=== PATIENT | male | born 1980 | race African-American/Black ===

== ENCOUNTER 2019-05-30 17:41 | Inpatient (IN) | payer OTHER ==
[~2019-05-30] VITALS: Ht 165.1 cm; Wt 68.0 kg
[2019-05-30] MEDS ORDERED: SODIUM CHLORIDE 0.9% 500 ML IV ONE (17:45)
[2019-05-30] MEDS ORDERED: ALBUTEROL (0.083%) 2.5MG/3ML NEB HHN ONE (17:45)
[2019-05-30] MEDS ORDERED: IPRATROPIUM BROMIDE (0.02%) 0.5MG/2.5ML NEB HHN ONE (17:45)
[2019-05-30] MEDS ORDERED: MAGNESIUM 2 G PREMIX 50 ML IV ONE ×2 (17:45→17:58)
[2019-05-30] MEDS ORDERED: METHYLPREDNISOLONE SOD SUCC 125 MG/2 ML VIAL IV ONE (17:45)
[2019-05-30] MEDS ORDERED: METHYLPREDNISOLONE SOD SUCC 125 MG/2 ML VIAL ONE (17:57)
[2019-05-30 19:15] LABS: HEMATOCRIT. 37.9 % (42.0-52.0); HEMOGLOBIN. 13.2 g/dL (14.0-18.0); MEAN CORPUSCULAR HEMOGLOBIN 29.9 pg (28.0-32.0); MEAN CORPUSCULAR VOLUME 85.9 fL (80.0-94.0); MEAN PLATELET VOLUME 7.7 fl (7.4-10.4); PLATELET 240 x1000/uL (130-400); RED BLOOD CELL COUNT 4.41 mill/uL (4.7-6.1); RED CELL DISTRIBUTION WIDTH 14.8 % (11.6-14.6)
[2019-05-30 19:35] LABS: PLATELET ESTIMATE NORMAL
[2019-05-30 19:41] LABS: CHLORIDE 103 mEq/L (98-107)
[2019-05-30 20:25] LABS: BG BASE EXCESS -2.8 mmol/L (-2.0-2.0); BG BILEVEL POS AIRWAY PRESSURE 17/5; BG CARBOXYHEMOGLOBIN 2.9 % (0.5-1.5); BG DEOXYHEMOGLOBIN 1.2 % (0.0-5.0); BG FRACTION INSPIRED OXYGEN 50; BG HCO3 ACT 23.7 mmol/L (22.0-26.0); BG METHEMOGLOBIN 0.3 % (0.0-1.5); BG OXYGEN SATURATION 98.8 % (92.0-98.5); BG OXYHEMOGLOBIN 95.6 % (94.0-97.0); BG PCO2 47.7 mmHg (35.0-45.0); BG PH 7.314 (7.350-7.450); BG SAMPLE SITE LEFT RADIAL; BG TOTAL HEMOGLOBIN 13.6 g/dL (12.0-18.0); BG VENT MODE MASK - BIPAP; BG VENT RATE 16 set
[2019-05-30] MEDS ORDERED: GUAIFENESIN 200MG/10ML SUGAR FREE UDC PO PRN (22:00)
[2019-05-30] MEDS ORDERED: METHYLPREDNISOLONE SOD SUCC 125 MG/2 ML VIAL IV SCH (22:00)
[2019-05-30] MEDS ORDERED: MAGNESIUM/ALUMINUM HYDROXIDE/SIMETHICONE 30ML UDC PO PRN (22:00)
[2019-05-30] MEDS ORDERED: ONDANSETRON HCL 4MG/2ML INJ IV PRN (22:00)
[2019-05-30] MEDS ORDERED: HYDROCODONE/ACETAMINOPHEN 5/325MG TABLET PO PRN (22:00)
[2019-05-30] MEDS ORDERED: CLONIDINE 0.1MG TABLET PO PRN (22:00)
[2019-05-30] MEDS ORDERED: IPRATROPIUM/ALBUTEROL 0.5-3(2.5)MG/3ML NEB NEB PRN (22:00)
[2019-05-30] MEDS ORDERED: ACETAMINOPHEN 325MG TABLET PO PRN (22:00)
[2019-05-30] MEDS ORDERED: DOCUSATE SODIUM 100MG CAPSULE PO PRN (22:00)
[2019-05-31] MEDS: ACETYLCYSTEINE 100MG/ML 10% VIAL 4ML INH SCH ×2 (00:40→20:00)
[2019-05-31 01:41] LABS: CLARITY URINE CLEAR (CLEAR); COLOR URINE YELLOW (YELLOW); KETONES URINE NEGATIVE (NEGATIVE); LEUKOCYTE ESTERASE URINE NEGATIVE (NEGATIVE); NITRITE URINE NEGATIVE (NEGATIVE); OCCULT BLOOD URINE 1+ (NEGATIVE); PROTEIN URINE 1+ (NEGATIVE); SPECIFIC GRAVITY URINE 1.018 (1.005-1.030); UROBILINOGEN URINE 0.2 E.U./dL (0.2-1.0)
[2019-05-31 02:22] LABS: *AMPHETAMINES SCREEN URINE NEGATIVE (NEGATIVE); *BARBITURATES SCREEN URINE NEGATIVE (NEGATIVE)
[2019-05-31 02:23] LABS: *BENZODIAZEPINES SCREEN URINE NEGATIVE (NEGATIVE); *COCAINE SCREEN URINE NEGATIVE (NEGATIVE); CANNABINOID URINE SCREEN PRESUMTIVE POSITIVE (NEGATIVE); METHADONE URINE SCREEN NEGATIVE (NEGATIVE); OPIATES URINE SCREEN NEGATIVE (NEGATIVE); PHENCYCLIDINE URINE SCREEN PRESUMTIVE POSITIVE (NEGATIVE)
[2019-05-31 02:30] VITALS: BP 118/81
[2019-05-31] MEDS ORDERED: METHYLPREDNISOLONE SOD SUCC 40 MG/ML VIAL IV SCH (02:46)
[2019-05-31 03:00] VITALS: BP 111/81
[2019-05-31] MEDS: IPRATROPIUM/ALBUTEROL 0.5-3(2.5)MG/3ML NEB NEB SCH ×5 (04:57→20:00)
[2019-05-31 07:02] LABS: HEMATOCRIT. 38.3 % (42.0-52.0); HEMOGLOBIN. 13.3 g/dL (14.0-18.0); MEAN CORPUSCULAR HEMOGLOBIN 29.9 pg (28.0-32.0); MEAN CORPUSCULAR VOLUME 86.3 fL (80.0-94.0); MEAN PLATELET VOLUME 7.9 fl (7.4-10.4); PLATELET 272 x1000/uL (130-400); RED BLOOD CELL COUNT 4.44 mill/uL (4.7-6.1); RED CELL DISTRIBUTION WIDTH 14.7 % (11.6-14.6)
[2019-05-31] MEDS ORDERED: OMEPRAZOLE 20MG CAPSULE EXTENDED RELEASE PO SCH (07:20)
[2019-05-31 07:57] LABS: LDL CHOLESTEROL 52 mg/dL (5-100)
[2019-05-31 07:59] LABS: CREATINE KINASE 152 IU/L (39-308)
[2019-05-31 08:01] LABS: HDL CHOLESTEROL 38 mg/dL (40-59)
[2019-05-31 08:05] LABS: CREATINE KINASE MB FRACTION 2.9 ng/mL (0.5-3.6)
[2019-05-31 08:11] VITALS: BP 100/69
[2019-05-31] MEDS ORDERED: BUDESONIDE 0.5MG/2ML NEB HHN SCH (09:00)
[2019-05-31] MEDS: ENOXAPARIN 40MG/0.4ML SYR SUBCUT SCH (10:02)
[2019-05-31] MEDS ORDERED: DEXTROSE 50% WATER 50ML SYRINGE IV PRN (10:15)
[2019-05-31 10:34] LABS: PLATELET ESTIMATE NORMAL
[2019-05-31 12:30] VITALS: BP 106/52
[2019-05-31] MEDS ORDERED: TERBUTALINE SULFATE 1MG/ML VIAL SUBCUT NR (12:45)
[2019-05-31] MEDS: BLOOD SUGAR DIAGNOSTIC STRIP TEST SCH ×3 (13:16→20:53)
[2019-05-31] MEDS: PNEUMOCOCCAL 23-VAL P-SAC VAC 0.5 ML IM ONE ×2 (13:31→20:00)
[2019-05-31] MEDS: METHYLPREDNISOLONE SOD SUCC 125 MG/2 ML VIAL IV SCH ×2 (13:32→20:52)
[2019-05-31] MEDS: FAMOTIDINE 20MG/2ML VIAL IV SCH ×2 (13:33→22:02)
[2019-05-31] MEDS: LORATADINE 10MG TABLET PO SCH (13:33)
[2019-05-31] MEDS: INSULIN LISPRO 100 UNITS/ML SUBCUT SCH ×3 (13:34→21:16)
[2019-05-31] MEDS ORDERED: AZITHROMYCIN 500 MG TABLET PO ONE (13:45)
[2019-05-31 16:30] VITALS: BP 139/80
[2019-05-31] MEDS: MONTELUKAST SODIUM 10MG TABLET PO SCH (17:13)
[2019-05-31] MEDS: FLUTICASONE PROPIONATE 50MCG/SPRAY BOTTLE BOTHNSTRLS SCH ×2 (17:13→20:52)
[2019-05-31] MEDS ORDERED: AZITHROMYCIN 500 MG TABLET PO NR (17:15)
[2019-05-31 20:00] VITALS: BP 132/72
[2019-06-01] VITALS: BP 123/61
[2019-06-01] MEDS: METHYLPREDNISOLONE SOD SUCC 125 MG/2 ML VIAL IV SCH ×3 (02:01→13:48)
[2019-06-01] MEDS: IPRATROPIUM/ALBUTEROL 0.5-3(2.5)MG/3ML NEB NEB SCH ×6 (04:00→21:00)
[2019-06-01 04:33] VITALS: BP 125/65
[2019-06-01] MEDS: BLOOD SUGAR DIAGNOSTIC STRIP TEST SCH ×4 (07:20→21:00)
[2019-06-01] MEDS: INSULIN LISPRO 100 UNITS/ML SUBCUT SCH ×4 (07:50→21:00)
[2019-06-01 08:00] VITALS: BP 124/64
[2019-06-01] MEDS: AZITHROMYCIN 500 MG TABLET PO SCH (08:43)
[2019-06-01] MEDS: LORATADINE 10MG TABLET PO SCH (08:43)
[2019-06-01] MEDS: FAMOTIDINE 20MG/2ML VIAL IV SCH ×2 (08:43→21:00)
[2019-06-01] MEDS: ENOXAPARIN 40MG/0.4ML SYR SUBCUT SCH (08:44)
[2019-06-01] MEDS: FLUTICASONE PROPIONATE 50MCG/SPRAY BOTTLE BOTHNSTRLS SCH ×2 (08:44→21:00)
[2019-06-01] MEDS: ACETYLCYSTEINE 100MG/ML 10% VIAL 4ML INH SCH ×3 (09:01→21:04)
[2019-06-01 10:34] VITALS: BP 123/79
[2019-06-01 14:27] VITALS: BP 135/86
[2019-06-01] MEDS: METHYLPREDNISOLONE SOD SUCC 40 MG/ML VIAL IV SCH (16:00)
[2019-06-01] MEDS: MONTELUKAST SODIUM 10MG TABLET PO SCH (16:47)
[2019-06-01 20:00] VITALS: BP 102/76
[2019-06-02] VITALS: BP 110/61
[2019-06-02 04:00] VITALS: BP 125/69
[2019-06-02] MEDS: IPRATROPIUM/ALBUTEROL 0.5-3(2.5)MG/3ML NEB NEB SCH ×6 (04:00→20:00)
[2019-06-02] MEDS: BLOOD SUGAR DIAGNOSTIC STRIP TEST SCH ×4 (07:29→20:48)
[2019-06-02] MEDS: INSULIN LISPRO 100 UNITS/ML SUBCUT SCH ×4 (07:29→20:48)
[2019-06-02 08:00] VITALS: BP 134/68
[2019-06-02] MEDS: ACETYLCYSTEINE 100MG/ML 10% VIAL 4ML INH SCH ×2 (08:10→16:00)
[2019-06-02] MEDS: METHYLPREDNISOLONE SOD SUCC 40 MG/ML VIAL IV SCH ×3 (08:50→16:11)
[2019-06-02] MEDS: LORATADINE 10MG TABLET PO SCH (08:52)
[2019-06-02] MEDS: AZITHROMYCIN 500 MG TABLET PO SCH (08:53)
[2019-06-02] MEDS: FAMOTIDINE 20MG/2ML VIAL IV SCH ×2 (08:53→20:48)
[2019-06-02] MEDS: FLUTICASONE PROPIONATE 50MCG/SPRAY BOTTLE BOTHNSTRLS SCH ×2 (08:53→20:47)
[2019-06-02] MEDS: ENOXAPARIN 40MG/0.4ML SYR SUBCUT SCH (08:54)
[2019-06-02 11:18] LABS: BASOPHILS % 0.2 % (0.0-2.0); HEMATOCRIT. 41.7 % (42.0-52.0); HEMOGLOBIN. 14.3 g/dL (14.0-18.0); LYMPHOCYTES % 14.1 % (20.0-50.0); MEAN CORPUSCULAR HEMOGLOBIN 29.3 pg (28.0-32.0); MEAN CORPUSCULAR VOLUME 85.3 fL (80.0-94.0); MONOCYTES % 8.4 % (2.0-8.0); NEUTROPHILS % 77.3 % (40.0-76.0); PLATELET 307 x1000/uL (130-400); RED BLOOD CELL COUNT 4.89 mill/uL (4.7-6.1); RED CELL DISTRIBUTION WIDTH 14.9 % (11.6-14.6)
[2019-06-02 11:38] LABS: CHLORIDE 107 mEq/L (98-107)
[2019-06-02 12:00] VITALS: BP 106/79
[2019-06-02 16:00] VITALS: BP 144/90
[2019-06-02] MEDS: MONTELUKAST SODIUM 10MG TABLET PO SCH (16:11)
[2019-06-02 20:00] VITALS: BP 129/80
[2019-06-03] VITALS: BP 141/79
[2019-06-03] MEDS: ACETYLCYSTEINE 100MG/ML 10% VIAL 4ML INH SCH ×3 (00:38→17:24)
[2019-06-03] MEDS: IPRATROPIUM/ALBUTEROL 0.5-3(2.5)MG/3ML NEB NEB SCH ×6 (00:38→20:45)
[2019-06-03] MEDS: BLOOD SUGAR DIAGNOSTIC STRIP TEST SCH ×4 (05:58→21:00)
[2019-06-03 07:07] LABS: BASOPHILS % 0.1 % (0.0-2.0); HEMATOCRIT. 39.4 % (42.0-52.0); HEMOGLOBIN. 13.7 g/dL (14.0-18.0); LYMPHOCYTES % 18.6 % (20.0-50.0); MEAN CORPUSCULAR HEMOGLOBIN 29.5 pg (28.0-32.0); MEAN CORPUSCULAR VOLUME 84.6 fL (80.0-94.0); NEUTROPHILS % 72.3 % (40.0-76.0); PLATELET 315 x1000/uL (130-400); RED BLOOD CELL COUNT 4.65 mill/uL (4.7-6.1)
[2019-06-03 07:09] LABS: CHLORIDE 109 mEq/L (98-107)
[2019-06-03] MEDS: INSULIN LISPRO 100 UNITS/ML SUBCUT SCH ×3 (07:50→21:00)
[2019-06-03 08:00] VITALS: BP 141/92
[2019-06-03] MEDS: ENOXAPARIN 40MG/0.4ML SYR SUBCUT SCH (09:00)
[2019-06-03] MEDS: AZITHROMYCIN 500 MG TABLET PO SCH (09:06)
[2019-06-03] MEDS: METHYLPREDNISOLONE SOD SUCC 40 MG/ML VIAL IV SCH ×3 (09:06→17:21)
[2019-06-03] MEDS: FAMOTIDINE 20MG/2ML VIAL IV SCH ×2 (09:06→21:00)
[2019-06-03] MEDS: FLUTICASONE PROPIONATE 50MCG/SPRAY BOTTLE BOTHNSTRLS SCH (09:06)
[2019-06-03] MEDS: LORATADINE 10MG TABLET PO SCH (09:06)
[2019-06-03 12:00] VITALS: BP 96/46
[2019-06-03 16:00] VITALS: BP 116/79
[2019-06-03] MEDS: MONTELUKAST SODIUM 10MG TABLET PO SCH (17:21)
[2019-06-03 20:00] VITALS: BP 136/86
[2019-06-04 00:23] VITALS: BP 133/84
[2019-06-04 04:00] VITALS: BP 117/78
[2019-06-04] MEDS: BLOOD SUGAR DIAGNOSTIC STRIP TEST SCH ×2 (06:30→12:01)
[2019-06-04] MEDS: INSULIN LISPRO 100 UNITS/ML SUBCUT SCH ×2 (07:50→12:01)
[2019-06-04 08:00] VITALS: BP 119/68
[2019-06-04 08:09] LABS: HEMATOCRIT. 41.2 % (42.0-52.0); HEMOGLOBIN. 14.2 g/dL (14.0-18.0); MEAN CORPUSCULAR HEMOGLOBIN 29.3 pg (28.0-32.0); MEAN CORPUSCULAR VOLUME 85.1 fL (80.0-94.0); MEAN PLATELET VOLUME 8.1 fl (7.4-10.4); PLATELET 327 x1000/uL (130-400); RED BLOOD CELL COUNT 4.84 mill/uL (4.7-6.1)
[2019-06-04] MEDS: IPRATROPIUM/ALBUTEROL 0.5-3(2.5)MG/3ML NEB NEB SCH ×2 (08:14→11:55)
[2019-06-04] MEDS: ACETYLCYSTEINE 100MG/ML 10% VIAL 4ML INH SCH ×2 (08:14→15:48)
[2019-06-04 08:17] LABS: CHLORIDE 108 mEq/L (98-107)
[2019-06-04] MEDS: ENOXAPARIN 40MG/0.4ML SYR SUBCUT SCH (09:00)
[2019-06-04] MEDS: METHYLPREDNISOLONE SOD SUCC 40 MG/ML VIAL IV SCH (10:15)
[2019-06-04] MEDS: FAMOTIDINE 20MG/2ML VIAL IV SCH (10:15)
[2019-06-04] MEDS: LORATADINE 10MG TABLET PO SCH (10:15)
[2019-06-04] MEDS: AZITHROMYCIN 500 MG TABLET PO SCH (10:15)
[2019-06-04 12:00] VITALS: BP 114/45
[2019-06-04] MEDS ORDERED: ALBU18HF2 IH (12:22)
[2019-06-04] MEDS ORDERED: BENZ-16 MT (12:22)
[2019-06-04] MEDS ORDERED: CLAR10 PO (12:22)
[2019-06-04] MEDS ORDERED: P20 MT (12:22)
[2019-06-04] MEDS ORDERED: MONT10TA21 PO (12:22)
[2019-06-04] MEDS ORDERED: PROT40 MT (12:25)
[2019-06-04 13:51] VITALS: BP 112/42
[2019-06-04 22:58] LABS: ATYPICAL LYMPHOCYTES 1
[2019-06-04 22:59] LABS: PLATELET ESTIMATE NORMAL
== END 2019-06-04 15:50 | disposition home or self-care (01) | DRG 133 ==
LOC: ER 17:41 → ENRESERV 05-31 00:26 → 6WST 05-31 02:30
PROVIDERS: ADMIT Internal Medicine; ATTEND Internal Medicine
PROC: 5A09357 Assistance with Respiratory Ventilation, Less than 24 Consecutive Hours, Continuous Positive Airway Pressure (ICD-10-PCS; principal; 2019-05-30)
PROC: 5A09357 Assistance with Respiratory Ventilation, Less than 24 Consecutive Hours, Continuous Positive Airway Pressure (ICD-10-PCS; 2019-05-31)
DX: J96.00 Acute respiratory failure, unspecified whether with hypoxia or hypercapnia (principal); E87.2 Acidosis; R65.10 Systemic inflammatory response syndrome (SIRS) of non-infectious origin without acute organ dysfunction; J45.901 Unspecified asthma with (acute) exacerbation; J06.9 Acute upper respiratory infection, unspecified; F12.10 Cannabis abuse, uncomplicated; R73.9 Hyperglycemia, unspecified; J00 Acute nasopharyngitis [common cold]; F17.210 Nicotine dependence, cigarettes, uncomplicated; F15.90 Other stimulant use, unspecified, uncomplicated; D72.821 Monocytosis (symptomatic); Z71.6 Tobacco abuse counseling; Z87.01 Personal history of pneumonia (recurrent); Z71.51 Drug abuse counseling and surveillance of drug abuser
CPT/HCPCS: 36415; 36600; 71045; 80048; 80061; 80305; 81003; 82375; 82550; 82553; 82805; 82962; 83036; 83880; 84443; 84484; 90732; 93005; 93970; 94640; 94660; 96365; 96375; 99291; 99406; J1650; J1815; J2920; J2930; J3105; J3475; J3490; J7040; J7608; J7620; J7626

== ENCOUNTER 2019-08-24 14:37 | Emergency (ER) | payer OTHER ==
[~2019-08-24] VITALS: Ht 172.7 cm; Wt 85.0 kg
[~2019-08-24 14:37] MED LIST: ALBU18HF2 IH; BENZ-16 MT; CLAR10 PO; MONT10TA21 PO; P20 MT; PROT40 MT
[2019-08-24 14:48] VITALS: BP 134/74
[2019-08-24 16:10] LABS: BASOPHILS % 1.1 % (0.0-2.0); EOSINOPHILS % 1.9 % (0.0-5.0); HEMATOCRIT. 45.3 % (42.0-52.0); HEMOGLOBIN. 15.9 g/dL (14.0-18.0); LYMPHOCYTES % 46.1 % (20.0-50.0); MEAN CORPUSCULAR HEMOGLOBIN 29.6 pg (28.0-32.0); MEAN CORPUSCULAR VOLUME 84.2 fL (80.0-94.0); MEAN PLATELET VOLUME 7.6 fl (7.4-10.4); MONOCYTES % 7.8 % (2.0-8.0); NEUTROPHILS % 43.1 % (40.0-76.0); PLATELET 371 x1000/uL (130-400); RED BLOOD CELL COUNT 5.38 mill/uL (4.7-6.1); RED CELL DISTRIBUTION WIDTH 15.1 % (11.6-14.6)
[2019-08-24 16:12] LABS: CHLORIDE 110 mEq/L (98-107)
[2019-08-24 16:16] LABS: ETHANOL BLOOD 160 mg/dL
[2019-08-24 19:13] LABS: *AMPHETAMINES SCREEN URINE NEGATIVE (NEGATIVE); *BARBITURATES SCREEN URINE NEGATIVE (NEGATIVE); *BENZODIAZEPINES SCREEN URINE NEGATIVE (NEGATIVE); *COCAINE SCREEN URINE NEGATIVE (NEGATIVE); METHADONE URINE SCREEN NEGATIVE (NEGATIVE)
[2019-08-24 19:14] LABS: CANNABINOID URINE SCREEN PRESUMTIVE POSITIVE (NEGATIVE); OPIATES URINE SCREEN NEGATIVE (NEGATIVE); PHENCYCLIDINE URINE SCREEN PRESUMTIVE POSITIVE (NEGATIVE)
== END 2019-08-24 19:30 | disposition left against medical advice (07) ==
LOC: ER 14:37
DX: R45.850 Homicidal ideations (principal); F20.9 Schizophrenia, unspecified; F17.210 Nicotine dependence, cigarettes, uncomplicated; F12.10 Cannabis abuse, uncomplicated
CPT/HCPCS: 36415; 80305; 80307; 80320; 80329; 99284; 99406; G0480

== ENCOUNTER 2019-09-04 03:41 | Emergency (ER) | payer OTHER ==
[~2019-09-04] VITALS: Ht 180.3 cm; Wt 73.0 kg
[2019-09-04 04:32] LABS: BASOPHILS % 1.4 % (0.0-2.0); EOSINOPHILS % 1.1 % (0.0-5.0); HEMATOCRIT. 46.1 % (42.0-52.0); HEMOGLOBIN. 16.1 g/dL (14.0-18.0); LYMPHOCYTES % 31.8 % (20.0-50.0); MEAN CORPUSCULAR HEMOGLOBIN 29.4 pg (28.0-32.0); MEAN CORPUSCULAR VOLUME 83.9 fL (80.0-94.0); MEAN PLATELET VOLUME 8.2 fl (7.4-10.4); MONOCYTES % 9.1 % (2.0-8.0); NEUTROPHILS % 56.6 % (40.0-76.0); PLATELET 292 x1000/uL (130-400); RED BLOOD CELL COUNT 5.49 mill/uL (4.7-6.1); RED CELL DISTRIBUTION WIDTH 15.2 % (11.6-14.6)
[2019-09-04 04:41] LABS: CHLORIDE 115 mEq/L (98-107)
[2019-09-04 04:46] LABS: CLARITY URINE CLEAR (CLEAR); COLOR URINE YELLOW (YELLOW); KETONES URINE NEGATIVE (NEGATIVE); LEUKOCYTE ESTERASE URINE NEGATIVE (NEGATIVE); NITRITE URINE NEGATIVE (NEGATIVE); OCCULT BLOOD URINE 3+ (NEGATIVE); PH URINE 8.5 (4.5-8.0); PROTEIN URINE NEGATIVE (NEGATIVE); SPECIFIC GRAVITY URINE 1.011 (1.005-1.030); UROBILINOGEN URINE 0.2 E.U./dL (0.2-1.0)
[2019-09-04 04:47] LABS: ETHANOL BLOOD 55 mg/dL
[2019-09-04 04:52] LABS: CREATINE KINASE 118 IU/L (39-308)
[2019-09-04] MEDS ORDERED: SODIUM CHLORIDE 0.9% 1,000 ML IV ONE (05:00)
[2019-09-04 05:07] LABS: *AMPHETAMINES SCREEN URINE NEGATIVE (NEGATIVE); *BARBITURATES SCREEN URINE NEGATIVE (NEGATIVE); *BENZODIAZEPINES SCREEN URINE NEGATIVE (NEGATIVE); *COCAINE SCREEN URINE NEGATIVE (NEGATIVE); METHADONE URINE SCREEN NEGATIVE (NEGATIVE); OPIATES URINE SCREEN NEGATIVE (NEGATIVE)
[2019-09-04 05:08] LABS: CANNABINOID URINE SCREEN NEGATIVE (NEGATIVE); PHENCYCLIDINE URINE SCREEN NEGATIVE (NEGATIVE)
[2019-09-04 15:00] VITALS: BP 135/85
== END 2019-09-04 17:49 | disposition home or self-care (01) ==
LOC: ER 03:41
DX: G40.909 Epilepsy, unspecified, not intractable, without status epilepticus (principal); I10 Essential (primary) hypertension; F10.129 Alcohol abuse with intoxication, unspecified; Y90.2 Blood alcohol level of 40-59 mg/100 ml
CPT/HCPCS: 36415; 70450; 71045; 80053; 80165; 80185; 80305; 80320; 81003; 82542; 82550; 82962; 83605; 84443; 84484; 85025; 96360; 99284; J7030; Z7610; G0480